=== PATIENT | male | born 1935 | race Two or more races ===

== ENCOUNTER 2018-04-17 10:11 | Inpatient (IN) | payer MEDICARE ==
--- NOTE | 2018-04-04 22:29 | HP ---
HISTORY AND PHYSICAL: DATE OF ADMISSION/SURGERY: 04/17/18 DATE OF OFFICE VISIT: 04/04/18 SURGEON: Marge Milton MD * (DICTATED BY KIERA GRANGER) PROCEDURE: Left total hip arthroplasty. CHIEF COMPLAINT: Left hip pain. HISTORY OF PRESENT ILLNESS: Mr. Gómez is an 82-year-old male with complaints of left hip pain. He has failed conservative treatment and elected to proceed with a left total hip arthroplasty. PAST MEDICAL HISTORY: 1. AFib. 2. Hypertension. 3. History of kidney cancer. 4. Thoracic aortic aneurysm. PAST SURGICAL HISTORY: Removal of his right kidney and bilateral total knee arthroplasties. CURRENT MEDICATIONS: 1. Coumadin. 2. Metoprolol 25 mg once a day. ALLERGIES: No known drug allergies. FAMILY HISTORY: Coronary artery disease and cancer. SOCIAL HISTORY: He is an 82-year-old gentleman, lives with his son. He does not smoke, use drugs or alcohol. REVIEW OF SYSTEMS: A complete 14-point review of systems is reviewed with the patient. It is positive for a history of kidney cancer, followed by a surgery to remove his right kidney. He denies a history of DVT, PE, hepatitis, HIV, or anesthesia problems. PHYSICAL EXAMINATION GENERAL: He is well developed, well nourished, in no acute distress. VITAL SIGNS: He stands 71 inches tall, weighs 225 pounds. Blood pressure 123/ 68, heart rate is 72. HEENT: Normocephalic, atraumatic. NECK: Supple. No palpable lymph nodes. PULMONARY: The lungs are clear to auscultation bilaterally. CARDIO: Regular rate and rhythm. Strong S1, S2. ABDOMEN: Soft, nontender, nondistended. NEUROLOGICAL: He is alert and oriented x3. MUSCULOSKELETAL: Left lower extremity: The skin is intact. There are no open wounds or abrasions. He walks with an antalgic-type gait favoring his left hip. Range of motion of the hip: He has 80 degrees of hip flexion, he lacks 10 degrees to neutral, and has no internal rotation. He has 20 degrees of external rotation. He has had 2+ dorsalis pedis pulse, intact sensation, and his lower extremity muscle group strengths are intact at 5/5. ASSESSMENT AND PLAN: Mr. Gómez is an 82-year-old gentleman with end-stage osteoarthritis of the left hip. He has failed conservative treatment and elected to proceed with a left total hip arthroplasty, which is scheduled for with Dr. Milton. Dr. Milton discussed the risks and benefits of the surgery at today's visit and all of his questions were answered. He will follow up with Dr. Milton 2 weeks after the surgery. KIERA GRANGER [id number]/[facility] #: [id number] [facility]
[~2018-04-17 10:11] MED LIST: Buffered Lidocaine 0.9% SYRIN* 5 ML/SYR SYRINGE INTRADERM ONE; Famotidine IV* 10 MG/ML 2 ML (20 mg) IV ONE; Gabapentin CAP(*) 300 MG PO ONE
--- OUTSIDE RECORDS SUMMARY | 2018-04-17 10:15 | XMS REPORT | Continuity of Care Document ---
:1935 External Reference #:[id number] Author Name Neville Parr Care Team Providers Name Role Phone Kelvin Gomez MD Primary Care Physician Unavailable Payers Type Date Identification Numbers Payment Provider Subscriber Effective: 2018 Policy Number: [id number] Medicare Spelios Stamas PayID: [id number] [address] [place] [address] Effective: 2018 PayID: [id number] [facility] Spelios Stamas [address] [place] [address] Effective: 2014 Policy Number: Todays Option/[place] pr Spelios Stamas [id number] Expires: 2018 PayID: [id number] [address] [address] Attn: [place] [address] Effective: 2013 Policy Number: [id number] Medicare Blue Ppo Spelios Stamas Expires: 2014 Group Number: [id number] [address] [address] PayID: [id number] ManasBRADLY lopes [id number] Advance Directives Description No Information Available Problems Date Description Provider Status Onset: 05/29/2013 Atrial fibrillation Yosvany Dobson M.D., Active JU KILPATRICK Onset: 06/17/2015 Dilatation of aorta Yosvany Dobson M.D., Active JU KILPATRICK Onset: 06/17/2015 Chronic atrial fibrillation Yosvany Dobson M.D., Active JU KILPATRICK Onset: 03/02/2018 Localized, primary osteoarthritis Marge Milton M.D. Active of the pelvic region and thigh Onset: 08/08/2017 Thoracic aortic ectasia Yosvany Dobson M.D., Active FINESSE, JU Family History Description No Information Available Social History Type Date Description Comments Sex Unknown Marital Status Single Lives With Alone Occupation Retired Tobacco Use Start: Unknown Never Smoked Cigarettes Smoking Status Reviewed: 04/04/18 Never Smoked Cigarettes ETOH Use Never used alcohol Tobacco Use Start: Unknown Patient has never smoked Recreational Drug Use Never Used Drugs Exercise Type/Frequency Exercises regularly walk 2-3 miles everyday Allergies, Adverse Reactions, Alerts Description No Known Drug Allergies Medications Medication Date Status Form Strength Qnty SIG Indications Ordering Provider Metoprolol 05/29/19 Active Tablets ER 25mg 90tabs 1 po qd Yosvany Mosqueda Succinate ER 14 24HR Michaela Dobson, JU KILPATRICK Coumadin Active Tablets 5mg 5mg and Unknown 00 7.5 mg the rest of the week Metoprolol Hx Tablets ER 25mg 1/2 tab Unknown Succinate ER 00 - 24HR po qd 05/29/19 14 Medications Administered in Office Medication Date Status Form Strength Qnty SIG Indications Ordering Provider Inj, Administered Injection Yosvany Mosqueda Regadenoson, 018 [place], 0.1 MG FINESSE Jennings FASNC Thallium Administered Injection Yosvany Dobson M.D., JU KILPATRICK Immunizations Description No Information Available Vital Signs Date Vital Result Comment 04/04/2018 11:44am Height 71 inches 5'11" Weight 225.00 lb Heart Rate 78 /min BP Systolic 123 mmHg BP Diastolic 68 mmHg Respiratory Rate 16 /min Pain Level 2 BMI (Body Mass Index) 31.4 kg/m2 03/26/2018 1:02pm Height 71 inches 5'11" Weight 225.00 lb Heart Rate 66 /min BP Systolic Sitting 126 mmHg lue lg cuff BP Diastolic Sitting 70 mmHg lue lg cuff BP Systolic Standing 120 mmHg BP Diastolic Standing 74 mmHg Respiratory Rate 16 /min BMI (Body Mass Index) 31.4 kg/m2 Ejection Fraction 60-65% 07/17/2017 echo 03/02/2018 10:07am Height 71 inches 5'11" Weight 220.00 lb BP Systolic 119 mmHg BP Diastolic 72 mmHg Respiratory Rate 17 /min Pain Level 4 BMI (Body Mass Index) 30.7 kg/m2 08/08/2017 1:04pm Height 71 inches 5'11" Weight 225.00 lb No shoes Heart Rate 70 /min BP Systolic Sitting 120 mmHg Lue lrg cuff BP Diastolic Sitting 64 mmHg Lue lrg cuff BP Systolic Standing 112 mmHg Lue lrg cuff BP Diastolic Standing 62 mmHg Lue lrg cuff Respiratory Rate 16 /min BMI (Body Mass Index) 31.4 kg/m2 Ejection Fraction 60-65% 07/17/2017-echo 06/15/2016 12:29pm Height 71 inches 5'11" Weight 234.00 lb no shoes Heart Rate 72 /min BP Systolic Sitting 124 mmHg Rue lrg cuff BP Diastolic Sitting 76 mmHg Rue lrg cuff BP Systolic Standing 122 mmHg Rue lrg cuff BP Diastolic Standing 76 mmHg Rue lrg cuff Respiratory Rate 16 /min BMI (Body Mass Index) 32.6 kg/m2 Ejection Fraction 60-65% 06/10/2016 echo 06/17/2015 10:46am Height 71 inches 5'11" Weight 229.00 lb without shoes Heart Rate 70 /min BP Systolic 138 mmHg LA lrg cuff BP Diastolic 76 mmHg LA lrg cuff BP Systolic Standing 126 mmHg LA lrg cuff BP Diastolic Standing 80 mmHg LA lrg cuff Respiratory Rate 16 /min BMI (Body Mass Index) 31.9 kg/m2 Ejection Fraction 55-60% 06/15/15 07/01/2014 1:22pm Height 71 inches 5'11" Weight 234.00 lb no shoes Heart Rate 56 /min BP Systolic Sitting 132 mmHg LA, large cuff BP Diastolic Sitting 74 mmHg LA, large cuff BP Systolic Standing 124 mmHg LA BP Diastolic Standing 80 mmHg LA Respiratory Rate 16 /min BMI (Body Mass Index) 32.6 kg/m2 07/01/2014 1:21pm Weight 234.00 lb 05/29/2013 11:24am Height 71 inches 5'11" Weight 227.00 lb Heart Rate 72 /min BP Systolic Sitting 114 mmHg LA reg cuff BP Diastolic Sitting 84 mmHg LA reg cuff BP Systolic Standing 110 mmHg LA BP Diastolic Standing 80 mmHg LA Respiratory Rate 18 /min BMI (Body Mass Index) 31.7 kg/m2 Results Test Date Facility Test Result H/L Range Note CBC Auto Diff 12/18/2017 [facility] White Blood 6.0 10^3/uL N 3.5-10.[address] [place] [address] [phone] Red Blood Count 4.93 10^6/uL N 4.00-5.40 Hemoglobin 15.4 g/dL N 14.0-18.0 Hematocrit 45 % N 42-52 Mean Corpuscular Volume 91 fL N 80-94 Mean Corpuscular Hemoglobin 31 pg N 27-31 Mean Corpuscular HGB Conc 34 g/dL N 31-36 Red Cell Distribution Width 14 % N 10.5-15 Platelet Count 148 10^3/uL Low 150-450 Mean Platelet Volume 9.1 um3 N 7.4-10.4 Abs Neutrophils 3.9 10^3/uL N 1.5-7.7 Abs Lymphocytes 1.5 10^3/uL N 1.0-4.8 Abs Monocytes 0.4 10^3/uL N 0-0.8 Abs Eosinophils 0.1 10^3/uL N 0-0.6 Abs Basophils 0 10^3/uL N 0-0.2 Abs Nucleated RBC 0 10^3/uL Granulocyte % 65.2 % N 38-83 Lymphocyte % 25.3 % N 25-47 Monocyte % 6.5 % N 0-7 Eosinophil % 2.3 % N 0-6 Basophil % 0.7 % N 0-2 Nucleated Red Blood Cells % 0.1 Comp Metabolic Panel 12/18/2017 [facility] Albumin 4.1 g/dL N 3.2-5.[address] [place], [place] [id number] [phone] Sodium 141 mmol/L N 135-145 Potassium 4.4 mmol/L N 3.5-5.0 Chloride 107 mmol/L N 101-111 Co2 Carbon Dioxide 26 mmol/L N 22-32 Anion Gap 8 mmol/L N 2-11 Glucose 89 mg/dL N 70-100 Blood Urea Nitrogen 29 mg/dL High 6-24 Creatinine 1.73 mg/dL High 0.67-1.17 BUN/Creatinine Ratio 16.8 N 8-20 Calcium 8.5 mg/dL Low 8.6-10.3 Total Bilirubin 0.90 mg/dL N 0.2-1.0 Alkaline Phosphatase 59 U/L N 34-104 Alt 11 U/L N 7-52 Ast 16 U/L N 13-39 Egfr Non- 37.9 >60 Egfr 45.9 >60 1 Total Protein 6.5 g/dL N 6.4-8.9 Globulin 2.4 g/dL N 2-4 Albumin/Globulin Ratio 1.7 N 1-3 Comp Metabolic Panel 06/16/2015 [facility] Sodium 136 mmol/L N 133-[address] [place] [address] [phone] Potassium 4.9 mmol/L N 3.5-5.0 Chloride 103 mmol/L N 101-111 Co2 Carbon Dioxide 28 mmol/L N 22-32 Anion Gap 5 mmol/L N 2-11 Glucose 72 mg/dL N 70-100 Blood Urea Nitrogen 24 mg/dL N 6-24 Creatinine 1.94 mg/dL High 0.67-1.17 BUN/Creatinine Ratio 12.4 N 8-20 Calcium 8.5 mg/dL Low 8.6-10.3 Total Protein 6.9 g/dL N 6.4-8.9 Albumin 4.3 g/dL N 3.2-5.2 Globulin 2.6 g/dL N 2-4 Albumin/Globulin Ratio 1.7 N 1-3 Total Bilirubin 0.80 mg/dL N 0.2-1.0 Alkaline Phosphatase 56 U/L N 34-104 Alt 12 U/L N 7-52 Ast 17 U/L N 13-39 Egfr Non- 33.5 N >60 Egfr 43.0 N >60 2 CBC Auto Diff 06/16/2015 [facility] White Blood 6.4 10^3/uL N 3.5-10.[address] [place] [address] [phone] Red Blood Count 4.76 10^6/uL N 4.0-5.4 Hemoglobin 14.7 g/dL N 14.0-18.0 Hematocrit 45 % N 42-52 Mean Corpuscular Volume 94 fL N 80-94 Mean Corpuscular Hemoglobin 31 pg N 27-31 Mean Corpuscular HGB Conc 33 g/dL N 31-36 Red Cell Distribution Width 14 % N 10.5-15 Platelet Count 149 10^3/uL Low 150-450 Mean Platelet Volume 9 um3 N 7.4-10.4 Abs Neutrophils 4.2 10^3/uL N 1.5-7.7 Abs Lymphocytes 1.5 10^3/uL N 1.0-4.8 Abs Monocytes 0.5 10^3/uL N 0-0.8 Abs Eosinophils 0.1 10^3/uL N 0-0.6 Abs Basophils 0.1 10^3/uL N 0-0.2 Abs Nucleated RBC 0.01 10^3/uL N Granulocyte % 66.1 % N 38-83 Lymphocyte % 23.7 % Low 25-47 Monocyte % 7.1 % N 1-9 Eosinophil % 2.2 % N 0-6 Basophil % 0.9 % N 0-2 Nucleated Red Blood Cells % 0.1 N Lipid Profile 06/02/2014 [facility] Triglycerides 107 mg/dL N 3, 4 (Trig/Chol/HDL) [address] [place] [address] [phone] Cholesterol 160 mg/dL N 5 HDL Cholesterol 35.3 mg/dL N 6 LDL Cholesterol 103 mg/dL N 7 Comp Metabolic Panel 06/02/2014 [facility] Sodium 137 mmol/L N 133-145 [address] [place] [address] [phone] Potassium 4.4 mmol/L N 3.5-5.0 Chloride 102 mmol/L N 101-111 Co2 Carbon Dioxide 28 mmol/L N 22-32 Anion Gap 7 mmol/L N 2-11 Glucose 83 mg/dL N 70-100 Blood Urea Nitrogen 24 mg/dL N 6-24 Creatinine 1.64 mg/dL High 0.67-1.17 BUN/Creatinine Ratio 14.6 N 8-20 Calcium 8.5 mg/dL Low 8.6-10.3 Total Protein 6.6 g/dL N 6.4-8.9 Albumin 4.1 g/dL N 3.2-5.2 Globulin 2.5 g/dL N 2-4 Albumin/Globulin Ratio 1.6 N 1-3 Total Bilirubin 1.00 mg/dL N 0.2-1.0 Alkaline Phosphatase 49 U/L N 34-104 Alt 16 U/L N 7-52 Ast 20 U/L N 13-39 Egfr Non- 40.7 N >60 Egfr 52.4 N >60 8 CBC Auto Diff 06/02/2014 [facility] White Blood 6.4 10^3/uL N 4.8-10.[address] [place] [address] [phone] Red Blood Count 5.01 10^6/uL N 4.0-5.4 Hemoglobin 15.8 g/dL N 14.0-18.0 Hematocrit 47 % N 42-52 Mean Corpuscular Volume 93 fL N 80-94 Mean Corpuscular Hemoglobin 32 pg High 27-31 Mean Corpuscular HGB Conc 34 g/dL N 31-36 Red Cell Distribution Width 14 % N 10.5-15 Platelet Count 152 10^3/uL N 150-450 Mean Platelet Volume 9 um3 N 7.4-10.4 Abs Neutrophils 3.9 10^3/uL N 1.5-7.7 Abs Lymphocytes 1.9 10^3/uL N 1.0-4.8 Abs Monocytes 0.5 10^3/uL N 0-0.8 Abs Eosinophils 0.1 10^3/uL N 0-0.6 Abs Basophils 0 10^3/uL N 0-0.2 Abs Nucleated RBC 0.04 10^3/uL N Granulocyte % 60.7 % N 38-83 Lymphocyte % 29.6 % N 25-47 Monocyte % 7.3 % N 1-9 Eosinophil % 1.8 % N 0-6 Basophil % 0.6 % N 0-2 Nucleated Red Blood Cells % 0.6 N Comp Metabolic Panel 11/15/2013 [facility] Sodium 138 mmol/L N 133-[address] [place] [address] [phone] Potassium 4.3 mmol/L N 3.7-5.6 Chloride 103 mmol/L N 101-111 Co2 Carbon Dioxide 30 mmol/L N 22-32 Anion Gap 5 mmol/L N 2-11 Glucose 82 mg/dL N 70-100 Blood Urea Nitrogen 19 mg/dL N 6-24 Creatinine 1.66 mg/dL High 0.67-1.17 BUN/Creatinine Ratio 11.4 N 8-20 Calcium 8.4 mg/dL Low 8.6-10.3 Total Protein 6.3 g/dL Low 6.4-8.9 Albumin 4.2 g/dL N 3.2-5.2 Globulin 2.1 g/dL N 2-4 Albumin/Globulin Ratio 2.0 N 1-3 Total Bilirubin 1.00 mg/dL N 0.2-1.0 Alkaline Phosphatase 52 U/L N 34-104 Alt 16 U/L N 7-52 Ast 20 U/L N 13-39 Egfr Non- 40.2 N >60 Egfr 51.7 N >60 9 CBC Auto Diff 11/15/2013 [facility] White Blood 5.8 10^3/uL N 4.8-10.[address] [place] [address] [phone] Red Blood Count 4.65 10^6/uL N 4.0-5.4 Hemoglobin 14.9 g/dL N 14.0-18.0 Hematocrit 43 % N 42-52 Mean Corpuscular Volume 93 fL N 80-94 Mean Corpuscular Hemoglobin 32 pg High 27-31 Mean Corpuscular HGB Conc 35 g/dL N 31-36 Red Cell Distribution Width 14 % N 10.5-15 Platelet Count 160 10^3/uL N 150-450 Mean Platelet Volume 8 um3 N 7.4-10.4 Abs Neutrophils 3.6 10^3/uL N 1.5-7.7 Abs Lymphocytes 1.5 10^3/uL N 1.0-4.8 Abs Monocytes 0.4 10^3/uL N 0-0.8 Abs Eosinophils 0.1 10^3/uL N 0-0.6 Abs Basophils 0.1 10^3/uL N 0-0.2 Abs Nucleated RBC 0.01 10^3/uL N Granulocyte % 63.0 % N 38-83 Lymphocyte % 26.0 % N 25-47 Monocyte % 7.5 % N 1-9 Eosinophil % 2.5 % N 0-6 Basophil % 1.0 % N 0-2 Nucleated Red Blood Cells % 0.1 N Comp Metabolic Panel 05/20/2013 [facility] Sodium 138 mmol/L 133-[address] [place] [address] [phone] Potassium 4.5 mmol/L 3.5-5.0 Chloride 101 mmol/L 101-111 Co2 Carbon Dioxide 32.0 mmol/L 22-32 Anion Gap 5.0 mmol/L 2-11 Glucose 99 mg/dL 70-100 Blood Urea Nitrogen 27 mg/dL High 6-24 Creatinine 1.50 mg/dL High 0.50-1.40 BUN/Creatinine Ratio 18.0 8-20 Calcium 8.7 mg/dL 8.1-9.9 Total Protein 6.9 g/dL 6.2-8.1 Albumin 4.1 g/dL 3.2-5.2 Globulin 2.8 g/dL 2-4 Albumin/Globulin Ratio 1.5 1-3 Total Bilirubin 1.4 mg/dL 0.4-1.5 Alkaline Phosphatase 55 U/L 30-110 Alt 21 U/L 14-54 Ast 26 U/L 12-42 Egfr Non- 45.3 >60 Egfr 58.2 >60 10 CBC Auto Diff 05/20/2013 [facility] White Blood 6.9 10^3/uL 4.8-10.[address] [place] [address] [phone] Red Blood Count 5.02 10^6/uL 4.0-5.4 Hemoglobin 15.6 g/dL 14.0-18.0 Hematocrit 46 % 42-52 Mean Corpuscular Volume 91 fL 80-94 Mean Corpuscular Hemoglobin 31 pg 27-31 Mean Corpuscular HGB Conc 34 g/dL 31-36 Red Cell Distribution Width 14 % 10.5-15 Platelet Count 164 10^3/uL 150-450 Mean Platelet Volume 9 um3 7.4-10.4 Abs Neutrophils 4.4 10^3/uL 1.5-7.7 Abs Lymphocytes 1.8 10^3/uL 1.0-4.8 Abs Monocytes 0.5 10^3/uL 0-0.8 Abs Eosinophils 0.1 10^3/uL 0-0.6 Abs Basophils 0 10^3/uL 0-0.2 Abs Nucleated RBC 0.01 10^3/uL Granulocyte % 64.4 % 38-83 Lymphocyte % 26.4 % 25-47 Monocyte % 7.0 % 1-9 Eosinophil % 1.5 % 0-6 Basophil % 0.7 % 0-2 Nucleated Red Blood Cells % 0.2 1 Because ethnic data is not always readily available, this report includes an eGFR for both -Americans and non- Americans. The National Kidney Disease Education Program (NKDEP) does not endorse the use of the MDRD equation for patients that are not between the ages of 18 and 70, are , have extremes of body size, muscle mass, or nutritional status, or are non- or non-. According to the National Kidney Foundation, irrespective of diagnosis, the stage of the disease is based on the level of kidney function: Stage Description GFR(mL/min/1.73 m(2)) 1 Kidney damage with normal or decreased GFR 90 2 Kidney damage with mild decrease in GFR 60-89 3 Moderate decrease in GFR 30-59 4 Severe decrease in GFR 15-29 5 Kidney failure <15 (or dialysis) 2 Because ethnic data is not always readily available, this report includes an eGFR for both -Americans and non- Americans. The National Kidney Disease Education Program (NKDEP) does not endorse the use of the MDRD equation for patients that are not between the ages of 18 and 70, are , have extremes of body size, muscle mass, or nutritional status, or are non- or non-. According to the National Kidney Foundation, irrespective of diagnosis, the stage of the disease is based on the level of kidney function: Stage Description GFR(mL/min/1.73 m(2)) 1 Kidney damage with normal or decreased GFR 90 2 Kidney damage with mild decrease in GFR 60-89 3 Moderate decrease in GFR 30-59 4 Severe decrease in GFR 15-29 5 Kidney failure <15 (or dialysis) 3 FASTING 4 Desirable <150 Borderline high 150-199 High 200-499 Very High >500 5 Desirable <200 Borderline high 200-239 High >239 6 Low <40 Desirable: 40-60 High: >60 7 Desirable <100 Near Optimal 100-129 Borderline high 130-159 High 160-189 Very High >189 8 Because ethnic data is not always readily available, this report includes an eGFR for both -Americans and non- Americans. The National Kidney Disease Education Program (NKDEP) does not endorse the use of the MDRD equation for patients that are not between the ages of 18 and 70, are , have extremes of body size, muscle mass, or nutritional status, or are non- or non-. According to the National Kidney Foundation, irrespective of diagnosis, the stage of the disease is based on the level of kidney function: Stage Description GFR(mL/min/1.73 m(2)) 1 Kidney damage with normal or decreased GFR 90 2 Kidney damage with mild decrease in GFR 60-89 3 Moderate decrease in GFR 30-59 4 Severe decrease in GFR 15-29 5 Kidney failure <15 (or dialysis) 9 Because ethnic data is not always readily available, this report includes an eGFR for both -Americans and non- Americans. The National Kidney Disease Education Program (NKDEP) does not endorse the use of the MDRD equation for patients that are not between the ages of 18 and 70, are , have extremes of body size, muscle mass, or nutritional status, or are non- or non-. According to the National Kidney Foundation, irrespective of diagnosis, the stage of the disease is based on the level of kidney function: Stage Description GFR(mL/min/1.73 m(2)) 1 Kidney damage with normal or decreased GFR 90 2 Kidney damage with mild decrease in GFR 60-89 3 Moderate decrease in GFR 30-59 4 Severe decrease in GFR 15-29 5 Kidney failure <15 (or dialysis) 10 Because ethnic data is not always readily available, this report includes an eGFR for both -Americans and non- Americans. The National Kidney Disease Education Program (NKDEP) does not endorse the use of the MDRD equation for patients that are not between the ages of 18 and 70, are , have extremes of body size, muscle mass, or nutritional status, or are non- or non-. According to the National Kidney Foundation, irrespective of diagnosis, the stage of the disease is based on the level of kidney function: Stage Description GFR(mL/min/1.73 m(2)) 1 Kidney damage with normal or decreased GFR 90 2 Kidney damage with mild decrease in GFR 60-89 3 Moderate decrease in GFR 30-59 4 Severe decrease in GFR 15-29 5 Kidney failure <15 (or dialysis) Procedures Date Code Description Status 03/26/2018 76224 EKG Tracing & Interpretation Completed 03/12/2018 81217 Stress Test Completed 03/12/2018 27458 Myocardial Perfusion Imaging Tomographic (Spect) Multiple Completed Studies 08/08/2017 63111 EKG Tracing & Interpretation Completed 07/17/2017 85743 ECHO Transthoracic, Real-Time 2D With Doppler And Color Completed Flow 07/17/2017 68395 ECHO Transthoracic, Real-Time 2D With Doppler And Color Completed Flow 06/15/2016 66797 EKG Tracing & Interpretation Completed 06/10/2016 10811 ECHO Transthoracic, Real-Time 2D With Doppler And Color Completed Flow 06/17/2015 31627 EKG Tracing & Interpretation Completed 06/15/2015 29012 ECHO Transthoracic, Real-Time 2D With Doppler And Color Completed Flow 07/01/2014 05311 EKG Tracing & Interpretation Completed 05/26/2014 72927 ECHO Transthoracic, Real-Time 2D With Doppler And Color Completed Flow 05/29/2013 34122 EKG Tracing & Interpretation Completed 05/24/2013 10409 ECHO Transthoracic, Real-Time 2D With Doppler And Color Completed Flow 05/25/2012 91444 EKG Tracing & Interpretation Completed 05/21/2012 02622 ECHO Transthoracic, Real-Time 2D With Doppler And Color Completed Flow Encounters Type Date Location Provider Dx Diagnosis Office Visit 03/26/2018 [facility] Yosvany Mosqueda I77.810 Thoracic aortic 1:15p Of Shayne Dobson M.D., ectasia [facility] Office Visit 03/02/2018 [facility], M25.552 Pain in left hip 9:45a [facility] M25.551 Pain in right hip M16.0 Bilateral primary osteoarthritis of hip Office Visit 08/08/2017 1:45p [facility] Yosvany Mosqueda I77.810 Thoracic aortic Of Shayne Dobson M.D., ectasia [facility] I48.2 Chronic atrial fibrillation Office Visit 06/15/2016 1:00p [facility] Yosvany Mosqueda I48.2 Chronic atrial Of Shayne Dobson M.D., fibrillation FAC, [facility] Office Visit 06/17/2015 11:00a [facility] Yosvany Mosqueda I77.819 Aortic ectasia, Of Shayne Dobson M.D., unspecified site [facility]AC, [facility] I48.2 Chronic atrial fibrillation Office Visit 07/01/2014 1:45p [facility] Yosvany Mosqueda 427.31 Atrial Of Shayne Dobson M.D., Fibrillation FAC, FASAK Office Visit 05/29/2013 10:45a [facility] Yosvany Mosqueda 427.31 Atrial Of Shayne Dobson M.D., Fibrillation FACC, FASNC Office Visit 05/25/2012 10:30a [facility] Yosvany Mosqueda 427.31 Atrial Of Shayne Dobson M.D., Fibrillation FACC, FASNC Plan of Treatment Future Appointment(s):04/17/2018 1:30 pm - Santana Barron PA-C at [facility].04/17/2018 1:30 pm - KIERA Talley at [facility].04/17/2018 1:30 pm - Marge Milton M.D. at [facility].04/04/2018 - Marge Milton M.D.M25.552 Pain in left hipFollow up:Follow up: 2 weeks after [id number] Bilateral primary osteoarthritis of hip
--- OUTSIDE RECORDS SUMMARY | 2018-04-17 10:16 | XMS REPORT | Continuity of Care Document ---
:1935 External Reference #:[id number] Author Name Suze Arroyo Care Team Providers Name Role Phone Kelvin Gomez MD Primary Care Physician Unavailable Payers Type Date Identification Numbers Payment Provider Subscriber Effective: 2018 Policy Number: [id number] Medicare Spel[employer] Stamas PayID: [id number] [address] [place] [address] Effective: 2018 PayID: [id number] [facility] Spelios Stamas [address] [place] [address] Effective: 2014 Policy Number: Todays Option/Welsh pr Spelios Stamas [id number] Expires: 2018 PayID: [id number] [address] [address] Attn: [place] [address] Effective: 2013 Policy Number: [id number] Medicare Blue Ppo Spelios Stamas Expires: 2014 Group Number: [id number] [address] [address] PayID: [id number] [place] [address] Advance Directives Description No Information Available Problems [...] Thoracic aortic ectasia Yosvany Dobson M.D., Active JU KILPATRICK Family History Description No Information Available Social History Type Date Description Comments Sex Unknown Marital Status Single Lives With Alone Occupation Retired Tobacco Use Start: Unknown Never Smoked Cigarettes Smoking Status Reviewed: 03/26/18 Never Smoked Cigarettes ETOH Use Never used [...] Yosvany Mosqueda Regadenoson, 018 [place], 0.1 MG Michaela, JU KILPATRICK Thallium Administered Injection Yosvany Dobson M.D., JU KILPATRICK Immunizations Description No Information Available Vital Signs Date Vital Result Comment 03/26/2018 1:02pm Height 71 inches 5'11" Weight [...] H/L Range Note CBC Auto Diff 12/18/2017 [facility] White Blood 6.0 10^3/uL N 3.5-10.[address] [place] [address] [phone] Red Blood Count 4.93 10^6/uL N 4.00-5.40 [...] Cells % 0.1 Comp Metabolic Panel 12/18/2017 [facility] Albumin 4.1 g/dL N 3.2-5.2 [address] [place] [address] [phone] Sodium 141 mmol/L N 135-145 Potassium 4.4 [...] 1.7 N 1-3 Comp Metabolic Panel 06/16/2015 [facility] Sodium 136 mmol/L N 133-[address] [place] [address] [phone] Potassium 4.9 mmol/L N 3.5-5.0 Chloride 103 [...] N >60 2 CBC Auto Diff 06/16/2015 [facility] White Blood 6.4 10^3/uL N 3.5-10.[address] [place] [address] [phone] Red Blood Count 4.76 10^6/uL N 4.0-5.4 [...] Cells % 0.1 N Comp Metabolic Panel 06/02/2014 [facility] Sodium 137 mmol/L N 133-[address] [place] [address] [phone] Potassium 4.4 mmol/L N 3.5-5.0 Chloride 102 [...] 40.7 N >60 Egfr 52.4 N >60 3 CBC Auto Diff 06/02/2014 [facility] White Blood 6.4 10^3/uL N 4.8-10.[address] [place] [address] [phone] Red Blood Count 5.01 10^6/uL N 4.0-5.4 [...] Nucleated Red Blood Cells % 0.6 N Lipid Profile 06/02/2014 [facility] Triglycerides 107 mg/dL N 4, 5 (Trig/Chol/HDL) [address] [place] [address] [phone] Cholesterol 160 mg/dL N 6 HDL Cholesterol 35.3 mg/dL N 7 LDL Cholesterol 103 mg/dL N 8 Comp Metabolic Panel 11/15/2013 [facility] Sodium 138 mmol/L N 133-145 [address] [place] [address] [phone] Potassium 4.3 mmol/L N 3.7-5.6 Chloride 103 [...] N >60 9 CBC Auto Diff 11/15/2013 [facility] White Blood 5.8 10^3/uL N 4.8-10.[address] [place] [address] [phone] Red Blood Count 4.65 10^6/uL N 4.0-5.4 [...] % 0.1 N Comp Metabolic Panel 05/20/2013 [facility] Sodium 138 mmol/L 133-[address] [place] [address] [phone] Potassium 4.5 mmol/L 3.5-5.0 Chloride 101 mmol/L [...] 58.2 >60 10 CBC Auto Diff 05/20/2013 [facility] White Blood 6.9 10^3/uL 4.8-10.[address] [place] [address] [phone] Red Blood Count 5.02 10^6/uL 4.0-5.4 Hemoglobin [...] 5 Kidney failure <15 (or dialysis) 3 Because ethnic data is not always readily [...] 15-29 5 Kidney failure <15 (or dialysis) 4 FASTING 5 Desirable <150 Borderline high 150-199 High 200-499 Very High >500 6 Desirable <200 Borderline high 200-239 High >239 7 Low <40 Desirable: 40-60 High: >60 8 Desirable <100 Near Optimal 100-129 Borderline high 130-159 High 160-189 Very High >189 9 Because ethnic data is not always [...] dialysis) Procedures Date Code Description Status 03/26/2018 38808 EKG Tracing & Interpretation Completed 03/12/2018 81636 Stress Test Completed 03/12/2018 61428 Myocardial Perfusion Imaging Tomographic (Spect) Multiple Completed Studies 08/08/2017 24739 EKG Tracing & Interpretation Completed 07/17/2017 47771 ECHO Transthoracic, Real-Time 2D With Doppler And Color Completed Flow 07/17/2017 42562 ECHO Transthoracic, Real-Time 2D With Doppler And Color Completed Flow 06/15/2016 18504 EKG Tracing & Interpretation Completed 06/10/2016 92154 ECHO Transthoracic, Real-Time 2D With Doppler And Color Completed Flow 06/17/2015 93794 EKG Tracing & Interpretation Completed 06/15/2015 78975 ECHO Transthoracic, Real-Time 2D With Doppler And Color Completed Flow 07/01/2014 59447 EKG Tracing & Interpretation Completed 05/26/2014 97762 ECHO Transthoracic, Real-Time 2D With Doppler And Color Completed Flow 05/29/2013 43202 EKG Tracing & Interpretation Completed 05/24/2013 74981 ECHO Transthoracic, Real-Time 2D With Doppler And Color Completed Flow 05/25/2012 10130 EKG Tracing & Interpretation Completed 05/21/2012 90674 ECHO Transthoracic, Real-Time 2D With Doppler And Color Completed Flow Encounters Type Date Location Provider Dx Diagnosis Office Visit 03/02/2018 [facility] Milton, M25.552 Pain in left hip 9:[facility] M25.551 Pain in right hip M16.0 Bilateral primary osteoarthritis of hip Office Visit 08/08/2017 1:45p [facility] Yosvany Mosqueda I77.810 Thoracic aortic Of Shayne Dobson M.D., ectasia FACC, FASNC I48.2 Chronic atrial fibrillation Office Visit 06/15/2016 1:00p [facility] Yosvany Mosqueda I48.2 Chronic atrial Of Shayne Dobson M.D., fibrillation FACC, FASNC Office Visit 06/17/2015 11:00a [facility] Yosvany Mosqueda I77.819 Aortic ectasia, Of Shayne Dobson M.D., unspecified site FACC, FASNC I48.2 Chronic atrial fibrillation Office Visit 07/01/2014 1:45p [facility] Mosqueda 427.31 Atrial Of Shayne Dobson M.D., Fibrillation FACC, FASNC Office Visit 05/29/2013 10:45a [facility] Yosvany Mosqueda 427.31 Atrial Of Shayne Dobson M.D., Fibrillation FACC, FASNC Office Visit 05/25/2012 10:30a [facility] Yosvany Mosqueda 427.31 Atrial Of Shayne Dobson M.D., Fibrillation FACC, FASNC Plan of Treatment Future Appointment(s):04/17/2018 3:30 pm - Marge Milton M.D. at [facility]04/04/2018 11:15 am - Marge Milton M.D. at [facility]03/26/2018 - Yosvany Dobson M.D., FACC, [id number] Thoracic aortic ectasiaNew Orders:Echocardiogram, Ordered: 03/26/18Comments:As discussed, I feel you may have needed hip replacement surgery with Dr. Milton. Please continue to walk for exercise and avoid lifting weights greater than 30 lbs.Follow up:one year after echo
[2018-04-17] MEDS ORDERED: ceFAZolin 2 GM PREMIX in ORs 2 GM/50 ML BAG IVPB ONE (10:34)
[2018-04-17] MEDS ORDERED: Famotidine IV* 10 MG/ML 2 ML (20 mg) ONE (10:34)
[2018-04-17] MEDS ORDERED: Gabapentin CAP(*) 300 MG ONE (10:34)
[2018-04-17 11:42] LABS: INR 1.15 (0.77-1.02)
[2018-04-17] MEDS ORDERED: fentaNYL* 50 MCG/ML 2 ML VIAL (100 MCG VIAL) ONE (12:03)
[2018-04-17] MEDS ORDERED: Midazolam* 1 MG/ML 5 ML VIAL (5 MG) ONE (12:03)
[2018-04-17] MEDS ORDERED: Lidocaine 1%* 5 ML VIAL ONE (12:40)
[2018-04-17] MEDS ORDERED: ROPIVACAINE 5 MG/ML 30 ML BTL (0.5%) ONE (12:40)
[2018-04-17] MEDS ORDERED: KETAMINE HCL* 50 MG/ML 10 ML VIAL ONE (13:39)
[2018-04-17] MEDS ORDERED: Lidocaine 2% PF * 5 ML VIAL ONE (14:43)
[2018-04-17] MEDS ORDERED: EPHEDrine (Pressors)* 50 MG/ML VIAL ONE (14:43)
[2018-04-17] MEDS ORDERED: Dexamethasone IV* 4 MG/ML 1 ML (4 MG) ONE (14:43)
[2018-04-17] MEDS ORDERED: Ondansetron INJ* 2 MG/ML VIAL ONE (14:43)
[2018-04-17] MEDS ORDERED: Propofol* 10 MG/ML 20 ML BTL ONE (14:43)
[2018-04-17] MEDS ORDERED: HYDROmorphone INJ1* 1 MG/ML SYRINGE ONE (15:31)
[2018-04-17] MEDS ORDERED: HYDROmorphone INJ1* 1 MG/ML SYRINGE IV PRN (16:12)
[2018-04-17] MEDS ORDERED: Acetaminophen IV 1GM/100ML * 1,000 MG/100 ML VIAL IVPB ONE (16:12)
[2018-04-17] MEDS ORDERED: Bupivacaine 0.5% PF 10 ML VIAL INJ ONE (16:12)
[2018-04-17] MEDS ORDERED: Naloxone* 0.4 MG/ML 1 ML VIAL IV PRN (16:12)
[2018-04-17] MEDS ORDERED: DiMENhydriNATE IV* 50 MG/ML VIAL IV PUSH PRN (16:12)
[2018-04-17] MEDS ORDERED: Gabapentin CAP(*) 100 MG PO ONE (16:13)
[2018-04-17] MEDS ORDERED: Bisacodyl SUPP* 10 MG SUPP PR PRN (16:34)
[2018-04-17] MEDS ORDERED: oxyCODONE/Acetamin 5/325 MG* TAB PO PRN (16:34)
[2018-04-17] MEDS ORDERED: Magnesium Hydroxide LIQ* 30 ML UDC PO PRN (16:34)
[2018-04-17] MEDS ORDERED: Cyclobenzaprine TAB* 10 MG PO PRN (16:34)
[2018-04-17] MEDS ORDERED: oxyCODONE TAB* 5 MG TAB PO PRN (16:34)
[2018-04-17] MEDS ORDERED: diPHENhydraMINE IV* 50 MG/ML 1 ml VIAL (BENADRYL) IV PRN (16:34)
[2018-04-17] MEDS ORDERED: Morphine VIAL* 4 MG/ML VIAL (1 ml vial) IV PRN (16:34)
[2018-04-17] MEDS ORDERED: Warfarin TAB(*) 6 MG PO ONE (17:00)
[2018-04-17] MEDS: Docusate CAP* 100 MG PO SCH (19:31)
[2018-04-17] MEDS: Magnesium Hydroxide LIQ* 30 ML UDC PO SCH (19:32)
[2018-04-17] MEDS: Nystatin TOP POWDER* 15 GM BTL TOPICAL SCH (21:51)
[2018-04-17] MEDS: ceFAZolin 1 GM ADVAN(*) 1 GM in NS 0.9% 50 ML* 50 ML IVPB SCH (21:52)
[2018-04-17] MEDS: Acetaminophen TAB* 325 MG PO PRN (23:34)
--- NOTE | 2018-04-18 01:43 | CONS ---
HOSPITAL MEDICINE CONSULTATION REPORT: DATE OF ADMISSION: 04/17/18 DATE OF CONSULT: 04/17/18 PROVIDER: Edwina Silva NP ATTENDING PHYSICIAN: Dr. Milton. CONSULTING PHYSICIAN: Dr. Patricio Mathis (dictated by Edwina Silva NP). REASON FOR CONSULT: Comanagement of chronic medical conditions. HISTORY OF PRESENT ILLNESS: Mr. Gómez is a 82-year-old gentleman with a past medical history significant for atrial fibrillation, hypertension, history of kidney cancer, thoracic aortic ectasia, who presented to [facility] for an elective left total hip arthroplasty with Dr. Milton. Please see dictated H and P from KIERA Singer for complete details. In brief, the patient had ongoing pain and failed conservative measures. Therefore, opted for an elective left total hip arthroplasty with Dr. Milton. In the immediate postoperative period, the patient has no complaints. He is resting in his bed in his room on short-stay surgical. He denies any recent fever or chills. Denies any nausea, vomiting or diarrhea. Denies any cough, congestion or shortness of breath. Denies any hemoptysis. Denies any gross hematuria, dysuria. Denies any focal weakness or sensory loss. Denies any visual complaints, dysphagia or increased arthralgias or myalgias, rashes, lesions, depression or anxiety. Given his history of atrial fibrillation and hypertension, we were asked to consult to help manage his chronic medical conditions. PAST MEDICAL HISTORY: 1. Atrial fibrillation, paroxysmal. 2. Hypertension. 3. History of kidney cancer. 4. Thoracic aortic ectasia. PAST SURGICAL HISTORY: Right kidney removed, bilateral knee arthroplasties. HOME MEDICATIONS: 1. Coumadin. 2. Metoprolol 25 once daily. ALLERGIES: No known drug allergies. FAMILY HISTORY: The patient's father with a history of congestive heart failure. No reported history of diabetes. Mother with a history of ovarian cancer. SOCIAL HISTORY: Denies any tobacco, alcohol or illicit drug use. He is retired. He lives with his son. Surrogate decision maker in the event he is unable to make his own decisions is his son, Manuel Gómez. His phone number is [phone]. He is a full code. REVIEW OF SYSTEMS: A complete 14-point review of systems was reviewed with the patient. All positives were noted as above. He denies any fever or chills. Denies any unintended weight loss. Denies any chest pain or edema. Denies any cough, congestion or hemoptysis. He denies any shortness of breath. GI: Denies any nausea, vomiting or diarrhea. : Denies any gross hematuria or dysuria. Denies any focal weakness or sensory loss. ENT: Denies any dysphagia. Musculoskeletal: No arthralgias or myalgias. Skin: No rashes, lesions or open sores. Psych: Denies any depression or anxiety. PHYSICAL EXAMINATION: Vital Signs: Blood pressure 128/68, heart rate 79, respirations 18, O2 saturation 100% on room air, temperature was 97.9. General : Mr. Gómez is sitting in his bed in his room. He is in no acute distress. Neurologic: He is awake, alert, and oriented x3. He is able to move all 4 extremities. He does have limited range of motion to left lower extremity. Pedal pulses are +2 bilaterally. Dressing is intact to his left hip. There is no drainage noted. Cardiac: S1, S2. Regular rate and rhythm. Lungs are clear to auscultation bilaterally. No wheezes, rales or rhonchi. Abdomen is soft and nontender. Bowel sounds are present x4. Extremities: There is no cyanosis or edema. Skin: Dressing is intact to his left hip, dry without any drainage noted. DIAGNOSTIC STUDIES/LAB DATA: WBCs on 04/04/18, were 6.9, RBCs 4.76, hemoglobin 15.1, hematocrit was 45, platelet count was 157. INR was 1.15. APTT was 43.3. Sodium 137, potassium 4.8, chloride 107, carbon dioxide was 27, anion gap was 3 , BUN was 29, creatinine 1.74, glucose was 81, calcium 8.6. ASTs were 20. ALTs were 13. Urine on 04/04/18, was yellow, clear; pH was 5.0; specific gravity 1.018; urine protein, ketones were negative, urine blood was 1+, urine nitrites, bilirubin, urobilinogen, urine leukocyte esterase were negative. Urine wbc's were trace. Urine rbc's were 1_. Urine squamous epithelial cells were present. Urine bacteria was absent. Urine glucose was negative. Postoperative hip x-ray, status post left total hip replacement surgery. IMPRESSION: Mr. Gómez is an 82-year-old gentleman, who presented to [facility] for an elective left total hip arthroplasty with Dr. Milton. In the immediate postoperative period, he has no complaints. His pain is currently being controlled with pain medications as needed. Our recommendations are as follows: 1. Status post left total hip arthroplasty, management per Orthopedics. PT/TO per Orthopedics. DVT prophylaxis per Orthopedics. Bowel regimen per Orthopedics. 2. Atrial fibrillation. I would recommend resuming his Coumadin when able. We will continue on metoprolol. I would monitor him on telemetry. 3. History of hypertension. I will continue his metoprolol 25 mg p.o. daily with holding parameters for systolic blood pressure less than 110. 4. History of kidney cancer, not a current issue. Continue to monitor renal function. I would recommend repeating a BMP tomorrow. 5. DVT prophylaxis as per Orthopedics. 6. Code status. He is a full code. 7. Diet. I would recommend a heart-healthy, caffeine-okay diet. TIME SPENT: Time spent on this consultation was 45 minutes, more than half of that time was spent with the patient at the bedside reviewing events leading thus far to this hospitalization, performing physical exam, and reviewing my plan of care. I have discussed this with my attending, Dr. Nils Mathis; she is in agreement with my plan. EDWINA SILVA, JUDY [id number]/[facility] #: [id number] JAZMINE
[2018-04-18 05:31] LABS: Hematocrit 39 % (42-52); Hemoglobin 13.2 g/dl (14.0-18.0); Platelet Count 148 10^3/ul (150-450)
[2018-04-18 05:50] LABS: EGFR Non-African American 40.9 (>60)
[2018-04-18] MEDS: ceFAZolin 1 GM ADVAN(*) 1 GM in NS 0.9% 50 ML* 50 ML IVPB SCH ×2 (05:51→14:00)
[2018-04-18 05:55] LABS: INR 1.1 (0.77-1.02)
[2018-04-18] MEDS: Acetaminophen TAB* 325 MG PO PRN (07:26)
[2018-04-18] MEDS: Nystatin TOP POWDER* 15 GM BTL TOPICAL SCH ×2 (08:05→20:12)
[2018-04-18] MEDS: Magnesium Hydroxide LIQ* 30 ML UDC PO SCH ×2 (08:07→20:10)
[2018-04-18] MEDS: Docusate CAP* 100 MG PO SCH ×2 (08:07→20:10)
[2018-04-18] MEDS: Metoprolol Succinate XL TAB* 25 MG PO SCH (08:07)
[2018-04-18] MEDS: Vitamin THERAPEUTIC TAB PO SCH (08:07)
[2018-04-18] MEDS: Enoxaparin(*) 40 MG/0.4 ML SYR SUBCUT SCH (08:08)
--- NOTE | 2018-04-18 09:14 | PN ---
Progress Note - Progress Note Date of Service: 04/18/18 SOAP: Subjective: []Patient seen and examined at bedside. He feels well without complaints today. Hip pain is well controlled, he has walked the unit with PT. Denies CP, SOB, dizziness, nausea. Takes coumadin at home for a fib, he has no history of blood clot. Had bilateral knee done in the past, intends to DC to home rather than a rehab when ready. Objective: []General: well appearing, NAD LLE: Left hip dressing CDI. Thigh is soft, DF/PF intact, DP2+, sensation intact distally Calves supple and nontender without erythema, edema or palpable cords Assessment: []POD 1 sp Left total hip arthroplasty Dr Milton Plan: []WBAT PT/OT Lovenox bridge to coumadin, coumadin 8 mg today Hyponatremia: DC IV fluids, repeat test tomorrow Intend for DC home tomorrow Vital Signs Temp 98.8 F 04/18/18 07:42 Pulse 90 04/18/18 07:42 Resp 16 04/18/18 08:00 BP 124/69 04/18/18 07:42 Pulse Ox 97 04/18/18 08:00 Intake & Output 04/17/18 04/18/18 04/18/18 18:59 06:59 18:59 Intake Total 1999 850 1185 Output Total 1427 1600 Balance 573 -750 1185 Weight 225 lb Intake: IV Fluids 1999 50 945 ABX - CEFAZOLIN 50 LR 2000 945 Oral 800 240 Output: [place] 627 1600 Residual 800 [place] 16 Fr 800 Other: # Bowel Movements 0 Laboratory Last Values Hgb 13.2 g/dl (14.0-18.0) L 04/18/18 05:07 Hct 39 % (42-52) L 04/18/18 05:07 Plt Count 148 10^3/ul (150-450) L 04/18/18 05:07 MPV 9.0 fL (7.4-10.4) 04/18/18 05:07 INR (Anticoag Therapy) 1.10 (0.77-1.02) H 04/18/18 05:07 Sodium 132 mmol/L (135-145) L 04/18/18 05:07 Potassium 4.9 mmol/L (3.5-5.0) 04/18/18 05:07 Chloride 103 mmol/L (101-111) 04/18/18 05:07 Carbon Dioxide 23 mmol/L (22-32) 04/18/18 05:07 Anion Gap 6 mmol/L (2-11) 04/18/18 05:07 BUN 29 mg/dL (6-24) H 04/18/18 05:07 Creatinine 1.62 mg/dL (0.67-1.17) H 04/18/18 05:07 Est GFR ( Amer) 49.5 (>60) 04/18/18 05:07 Est GFR (Non-Af Amer) 40.9 (>60) 04/18/18 05:07 BUN/Creatinine Ratio 17.9 (8-20) 04/18/18 05:07 Glucose 140 mg/dL (70-100) H 04/18/18 05:07 Calcium 8.1 mg/dL (8.6-10.3) L 04/18/18 05:07
[2018-04-18] MEDS: oxyCODONE/Acetamin 5/325 MG* TAB PO PRN ×3 (11:52→20:10)
[2018-04-18] MEDS ORDERED: NS 0.9% 1000 ML* 1,000 ML IV ONE (16:06)
[2018-04-18] MEDS ORDERED: Furosemide IV* 10 MG/ML 2 ML VIAL (20 MG) IV ONE (16:07)
--- NOTE | 2018-04-18 16:14 | PN ---
Subjective Date of Service: 04/18/18 Interval History: Patient seen and examined. Per RN, urine output has been low all day since vargas removal. Bladder scan reveals only 150ml. Vargas has been out for 9 hours. Patient denies abdominal pain, no SOB, no fevers or chills. Surgical pain well controlled. No further complaints. Objective Active Medications: Acetaminophen (Tylenol Tab*) 650 mg PO Q8H PRN PRN Reason: PAIN OR TEMPERATURE Last Admin: 04/18/18 07:26 Dose: 650 mg Bisacodyl (Dulcolax Supp*) 10 mg MT DAILY PRN PRN Reason: constipation Cyclobenzaprine HCl (Flexeril Tab*) 5 mg PO TID PRN PRN Reason: SPASMS Diphenhydramine HCl (Benadryl Iv*) 25 mg IV Q6H PRN PRN Reason: itching Docusate Sodium (Colace Cap*) 100 mg PO BID [facility] Last Admin: 04/18/18 08:07 Dose: 100 mg Enoxaparin Sodium (Lovenox(*)) 40 mg SUBCUT Q24H [facility] Last Admin: 04/18/18 08:08 Dose: 40 mg Furosemide (Lasix Iv*) 20 mg IV ONCE ONE Stop: 04/18/18 16:08 Lactated Ringer's (Lactated Ringers 1000 Ml Bag*) 1,000 mls @ 75 mls/hr IV PER RATE [facility] Last Admin: 04/18/18 07:21 Dose: 75 mls/hr Sodium Chloride (Ns 0.9% 1000 Ml*) 1,000 mls @ 1,000 mls/hr IV ONCE ONE Stop: 04/18/18 17:05 Lactulose (Lactulose*) 30 ml PO Q6H PRN PRN Reason: constipation Magnesium Hydroxide (Milk Of Magnesia Liq*) 30 ml PO BID [facility] Last Admin: 04/18/18 08:07 Dose: 30 ml Magnesium Hydroxide (Milk Of Magnesia Liq*) 30 ml PO Q6H PRN PRN Reason: constipation Metoprolol Succinate (Toprol Xl Tab*) 25 mg PO QAM [facility] Last Admin: 04/18/18 08:07 Dose: 25 mg Morphine Sulfate (Morphine Vial*) 2 mg IV Q2H PRN PRN Reason: PAIN Last Admin: 04/18/18 13:58 Dose: 2 mg Multivitamins (Theragran Tab*) 1 tab PO DAILY [facility] Last Admin: 04/18/18 08:07 Dose: 1 tab Nystatin (Nystatin Top Powder*) 1 applic TOPICAL BID [facility] Last Admin: 04/18/18 08:05 Dose: 1 applic Ondansetron HCl (Zofran Inj*) 4 mg IV Q6H PRN PRN Reason: nausea Oxycodone HCl (Roxycodone Tab*) 10 mg PO Q4H PRN PRN Reason: PAIN OR TEMPERATURE Oxycodone/Acetaminophen (Percocet 5/325 Tab*) 1 tab PO Q4H PRN PRN Reason: PAIN Last Admin: 04/18/18 05:34 Dose: 1 tab Oxycodone/Acetaminophen (Percocet 5/325 Tab*) 2 tab PO Q4H PRN PRN Reason: PAIN Last Admin: 04/18/18 16:04 Dose: 2 tab Pharmacy Profile Note (Coumadin Daily Reminder*) 0 note FOLLOW UP 1700 [facility] Warfarin Sodium (Coumadin Tab(*)) 8 mg PO ONCE@1700 ONE; Protocol Stop: 04/18/18 17:01 Vital Signs - 8 hr 04/18/18 04/18/18 04/18/18 11:12 11:51 11:52 Temperature 97.6 F Pulse Rate 92 84 Respiratory 16 18 Rate Blood Pressure 117/49 (mmHg) O2 Sat by Pulse 91 Oximetry 04/18/18 04/18/18 04/18/18 13:54 13:58 15:00 Temperature Pulse Rate Respiratory 18 18 18 Rate Blood Pressure (mmHg) O2 Sat by Pulse Oximetry 04/18/18 04/18/18 15:59 16:04 Temperature 97.5 F Pulse Rate 98 Respiratory 16 18 Rate Blood Pressure 114/65 (mmHg) O2 Sat by Pulse 98 Oximetry Oxygen Devices in Use Now: None Appearance: alert, NAD Eyes: No Scleral Icterus, PERRLA Ears/Nose/Mouth/Throat: NL Teeth, Lips, Gums, Mucous Membranes Moist Neck: NL Appearance and Movements; NL JVP, Trachea Midline Respiratory: Symmetrical Chest Expansion and Respiratory Effort, Clear to Auscultation Cardiovascular: NL Sounds; No Murmurs; No JVD, No Edema, - - irregular Abdominal: NL Sounds; No Tenderness; No Distention, No Hepatosplenomegaly Extremities: No Edema, No Clubbing, Cyanosis Skin: No Rash or Ulcers Neurological: Alert and Oriented x 3, NL Sensation Nutrition: Taking PO's Result Diagrams: 04/18/18 05:07 04/18/18 05:07 Assess/Plan/Problems-Billing Assessment: This is an 82 year old male with history of right nephrectomy and chronic afib, that presented to Dr. Milton for elective hip arthroplasty, today with low urine output. - Patient Problems (1) Status post left hip replacement Code(s): Z96.642 - PRESENCE OF LEFT ARTIFICIAL HIP JOINT SNOMED Code(s): 972944533 Comment: - POC per ortho - OOB with PT/OT - Pain control with bowel regimen - Lovenox-warfarin bridge (2) Low urine output Code(s): R34 - ANURIA AND OLIGURIA SNOMED Code(s): 55423358 Comment: - Bladder scan with only 150ml after vargas removal - Bolus now with 1liter NS, patient appears dry and sodium is mildly low - Will give one small dose lasix to stimulate output - Renal function currently below baseline, continue to monitor creat and output - Continue IVF at maintenance after bolus (3) History of nephrectomy Code(s): Z90.5 - ACQUIRED ABSENCE OF KIDNEY SNOMED Code(s): 09928579482921 Comment: - 2/2 renal carcinoma in 2012 - Concerned for low output since vargas removal, however BUN/creatinine are good and below his usual basline - Will continue IVF (4) Atrial fibrillation Code(s): I48.91 - UNSPECIFIED ATRIAL FIBRILLATION SNOMED Code(s): 62058669 Comment: - Rate controlled on BB, stable - AC with warfarin (5) Hypertension Current Visit: Yes Status: Acute Code(s): I10 - ESSENTIAL (PRIMARY) HYPERTENSION SNOMED Code(s): 57169431 Status and Disposition: Inpatient, dispo per ortho
[2018-04-18] MEDS ORDERED: Warfarin TAB(*) 4 MG PO ONE (17:00)
[2018-04-18] MEDS: NS 0.9% 1000 ML* 1,000 ML IV SCH (17:15)
[2018-04-18] MEDS: Ondansetron INJ* 2 MG/ML VIAL IV PRN (20:16)
--- NOTE | 2018-04-19 01:10 | OP ---
DATE OF OPERATION: 04/17/18 - ROOM #339 DATE OF : 33 ATTENDING SURGEON: Marge Milton MD DENTAL HYGIENE INSTRUCTOR: KIERA Shine. Mr. Barron did help throughout the procedure with preparation of the leg, wound retraction, manipulation of the hip, and wound closure. ANESTHESIOLOGIST: Dr. Willingham. ANESTHESIA: Spinal. PRE-OP DIAGNOSIS: Severe end-stage degenerative osteoarthritis of the left hip joint. POST-OP DIAGNOSIS: Severe end-stage degenerative osteoarthritis of the left hip joint. OPERATIVE PROCEDURE: Left total hip arthroplasty. COMPLICATIONS: None. ESTIMATED BLOOD LOSS: 200 cc. SPECIMEN: Femoral head and acetabular reaming sent to pathology. HARDWARE: This is uncemented Atif total hip arthroplasty hardware. For the cup, a 6TF Tritanium cluster hole shell and 21-mm screw. For the liner, a Trident X3 0-degree polyethylene insert 4DF. For the stem, an Accolade II, size 7 with a 127-degree neck. For the head, an LFIT anatomic 40 -4 metal femoral head. BRIEF HISTORY/INDICATION: Mr. Gómez is an 82-year-old gentleman with years of increasingly severe left hip pain. Radiographs showed advanced osteoarthritis. He failed conservative treatment with anti-inflammatories, pain medication, and physical therapy. Due to continued pain and decreased quality of life, he elected to undergo a left total hip arthroplasty. Informed consent was obtained from the patient. He understood the risks of surgery included, but were not limited to bleeding, infection, damage to nearby structures, continued pain, need for further surgery, intraoperative fracture, nerve palsy, hardware failure or loosening, dislocation, leg length discrepancy, stroke, heart attack , blood clot, and . He wished to proceed. INTRAOPERATIVE FINDINGS: Intraoperatively, the patient was noted to have severe end-stage arthritis with complete loss of cartilage. DESCRIPTION OF PROCEDURE: Mr. Gómez was identified in the preanesthesia unit. His left lower extremity was marked as the correct operative side. Informed consent was signed and placed in the chart. The patient was taken to the operating room and placed under spinal anesthesia. A Salcedo catheter was placed. The patient was placed in the right lateral decubitus position on the peg board. All bony prominences were well padded. Left lower extremity was prepped and draped in the usual sterile fashion. Preop time-out was made to correctly identify the patient, side, and site. Appropriate perioperative antibiotics were given within 1 hour of incision. A 12 cm posterior hip incision was made and carried down to the lateral fascia layer. A new 10-blade was used to make an incision in the lateral fascial layer in line with the skin incision. Charnley retractor was placed. The piriformis and conjoined tendons were identified. These were elevated off the posterolateral femur and tagged with #5 Ethibond. Electrocautery was then used to make a standard posterolateral capsular flap and this was also tagged with #5 Ethibond. The hip was carefully dislocated. Lesser troch to center of the femoral head measured 62 mm. Oscillating saw was used to make the appropriate femoral neck cut. The femur was retracted anteriorly. After appropriate placement of retractors, the acetabulum was well visualized. Long handled knife sharply removed any remaining labrum from the acetabulum rim. The acetabulum was sequentially reamed up to a size 59. The 59 reamer had bleeding subchondral bone bed. A 59 trial had excellent fit. The final implant chosen was a Tritanium cluster hole shell 60F. This was impacted into the acetabulum without difficulty. The cup was stable with appropriate anteversion and abduction angle. A single 20 mm screw was placed in the superoposterior quadrant for extra stability. Trident X3 0-degree liner 40F was chosen. This was locked into the position in the acetabulum without difficulty. Stability of the liner was checked and rechecked and noted to be stable. Next, attention was turned to preparation of the femoral canal. A canal finder was used to enter the proximal femur. Femur canal was sequentially broached up to a size 7. A size 7 broach had good fit and appropriate anteversion. A 127 neck trial with a 40+ 0 head trial was chosen. Lesser troch to center of the femoral head measured 67 mm. Therefore, the -4 head was chosen. Lesser troch to center of the femoral head measured 63 mm. The hip was reduced and taken through a range of motion. The hip was stable in all positions. The hip was carefully dislocated and all trials were removed. Final implant chosen was an Accolade II, size 7, with a 127-degree neck angle. This was impacted into the femoral canal without difficulty. The stem was stable with appropriate anteversion and LFIT anatomic V40 femoral head 40 - 4 was chosen as a head. The head was impacted down to the femoral neck. Lesser troch to center of the femoral head final measurement was 62 mm. The hip was reduced and taken through a range of motion. The hip was stable in all positions. There was good soft tissue tension and appropriate leg lengths. The wound was copiously irrigated with sterile saline. Previously tagged tendons and capsule were reapproximated to the posterolateral femur through 2 trochanteric drill holes. The lateral fascia layer was closed using interrupted #1 Vicryl. The rest of the incision was closed in a layered fashion using 0 and 2-0 Vicryl. Skin was closed using running 3-0 Monocryl and Dermabond. Sterile Adaptic, 4x4's, Webril , and paper tape were used to cover the incision. The patient's anesthesia was reversed without difficulty and he was taken to the PACU in stable condition. Intended weightbearing will be weightbearing as tolerated. Intended DVT prophylaxis will be with Lovenox. [id number]/[facility] #: [id number] JAZMINE
[2018-04-19] MEDS: NS 0.9% 1000 ML* 1,000 ML IV SCH ×2 (06:05→22:10)
[2018-04-19] MEDS: oxyCODONE/Acetamin 5/325 MG* TAB PO PRN (06:10)
[2018-04-19] MEDS: Ondansetron INJ* 2 MG/ML VIAL IV PRN (07:30)
--- NOTE | 2018-04-19 07:34 | PN ---
Progress Note - Progress Note Date of Service: 04/19/19 SOAP: Subjective: Pt. is alert, feeling nauseous this AM. Objective: Vital Signs: Temp Pulse Resp BP Pulse Ox 98.0 F 104 16 126/63 88 04/19/18 03:19 04/19/18 03:19 04/19/18 06:10 04/19/18 03:19 04/19/18 03:19 LLE - dressing changed, inc c/d/i. distally nvi. Assessment: 82 yo pod 2 s/p LTHA Plan: wbat lle pt/ot karan now plan d/c to home with vns monitoring I/O
[2018-04-19 08:55] LABS: Hematocrit 32 % (42-52); Hemoglobin 10.8 g/dl (14.0-18.0); Platelet Count 179 10^3/ul (150-450)
[2018-04-19 09:08] LABS: INR 1.66 (0.77-1.02)
[2018-04-19] MEDS ORDERED: traMADol TAB* 50 MG PO PRN (09:33)
[2018-04-19] MEDS: Metoprolol Succinate XL TAB* 25 MG PO SCH (09:42)
[2018-04-19] MEDS: Vitamin THERAPEUTIC TAB PO SCH (09:42)
[2018-04-19] MEDS: Docusate CAP* 100 MG PO SCH ×2 (09:42→20:18)
[2018-04-19] MEDS: Magnesium Hydroxide LIQ* 30 ML UDC PO SCH ×2 (09:42→20:19)
[2018-04-19] MEDS: Nystatin TOP POWDER* 15 GM BTL TOPICAL SCH ×2 (09:42→20:19)
[2018-04-19] MEDS: Enoxaparin(*) 40 MG/0.4 ML SYR SUBCUT SCH (09:43)
[2018-04-19] MEDS ORDERED: NS 0.9% 1000 ML* 1,000 ML IV ONE (09:45)
[2018-04-19 10:58] LABS: EGFR Non-African American 34.7 (>60)
--- NOTE | 2018-04-19 15:33 | PN ---
Subjective Date of Service: 04/19/18 Interval History: Pt seen and examined today. Pt was out of bed and in hospital chair with legs elevated. Nursing staff stated that patient had complained of nausea after percocet dosage this morning. Per RN report, pt was noted to be hypotensive with the onset of nausea. Pt states that he does not eat often and eats small meals, and that he took medication on an empty stomach. Currently, pt denies nausea, vomiting, abdominal pain. Pt denies pain, numbness in lower extremities and does not complain of discomfort in the left hip. Objective Active Medications: Acetaminophen (Tylenol Tab*) 650 mg PO Q8H PRN PRN Reason: PAIN OR TEMPERATURE Last Admin: 04/18/18 07:26 Dose: 650 mg Bisacodyl (Dulcolax Supp*) 10 mg ID DAILY PRN PRN Reason: constipation Cyclobenzaprine HCl (Flexeril Tab*) 5 mg PO TID PRN PRN Reason: SPASMS Diphenhydramine HCl (Benadryl Iv*) 25 mg IV Q6H PRN PRN Reason: itching Docusate Sodium (Colace Cap*) 100 mg PO BID [facility] Last Admin: 04/19/18 09:42 Dose: 100 mg Enoxaparin Sodium (Lovenox(*)) 40 mg SUBCUT Q24H [facility] Last Admin: 04/19/18 09:43 Dose: 40 mg Sodium Chloride (Ns 0.9% 1000 Ml*) 1,000 mls @ 75 mls/hr IV PER RATE [facility] Last Admin: 04/19/18 06:05 Dose: 75 mls/hr Lactulose (Lactulose*) 30 ml PO Q6H PRN PRN Reason: constipation Magnesium Hydroxide (Milk Of Magnesia Liq*) 30 ml PO BID [facility] Last Admin: 04/19/18 09:42 Dose: 30 ml Magnesium Hydroxide (Milk Of Magnesia Liq*) 30 ml PO Q6H PRN PRN Reason: constipation Metoprolol Succinate (Toprol Xl Tab*) 25 mg PO QAM [facility] Last Admin: 04/19/18 09:42 Dose: Not Given Morphine Sulfate (Morphine Vial*) 2 mg IV Q2H PRN PRN Reason: PAIN Last Admin: 04/18/18 13:58 Dose: 2 mg Multivitamins (Theragran Tab*) 1 tab PO DAILY [facility] Last Admin: 04/19/18 09:42 Dose: 1 tab Nystatin (Nystatin Top Powder*) 1 applic TOPICAL BID [facility] Last Admin: 04/19/18 09:42 Dose: 1 applic Ondansetron HCl (Zofran Inj*) 4 mg IV Q6H PRN PRN Reason: nausea Last Admin: 04/19/18 07:30 Dose: 4 mg Pharmacy Profile Note (Coumadin Daily Reminder*) 0 note FOLLOW UP 1700 [facility] Last Admin: 04/18/18 17:16 Dose: 1 note Tramadol HCl (Ultram*) 50 mg PO Q6H PRN PRN Reason: PAIN Vital Signs - 8 hr 04/19/18 04/19/18 04/19/18 08:00 08:11 08:15 Temperature 98.1 F Pulse Rate 67 Respiratory 20 18 18 Rate Blood Pressure 98/58 (mmHg) O2 Sat by Pulse 94 Oximetry 04/19/18 04/19/18 04/19/18 09:15 09:18 09:23 Temperature Pulse Rate 79 Respiratory Rate Blood Pressure 80/59 80/59 98/58 (mmHg) O2 Sat by Pulse Oximetry 04/19/18 04/19/18 04/19/18 10:56 10:57 11:18 Temperature 97.7 F Pulse Rate 85 97 Respiratory 18 Rate Blood Pressure 99/54 99/54 104/57 (mmHg) O2 Sat by Pulse 95 Oximetry 04/19/18 11:49 Temperature Pulse Rate 92 Respiratory Rate Blood Pressure 120/62 (mmHg) O2 Sat by Pulse 97 Oximetry Oxygen Devices in Use Now: None Appearance: alert, in no acute distress Eyes: No Scleral Icterus, PERRLA Ears/Nose/Mouth/Throat: NL Teeth, Lips, Gums, Mucous Membranes Moist Neck: Trachea Midline Respiratory: Symmetrical Chest Expansion and Respiratory Effort, Clear to Auscultation Cardiovascular: - - irregular rate Abdominal: NL Sounds; No Tenderness; No Distention Extremities: No Edema Skin: - - surgical dressing clean, dry, intact Neurological: Alert and Oriented x 3 Nutrition: Taking PO's, - - pt reports low intake Result Diagrams: 04/19/18 08:46 04/19/18 08:45 Assess/Plan/Problems-Billing Assessment: This is an 82 year old male with history of right nephrectomy and chronic afib, that presented to Dr. Milton for elective hip arthroplasty. Urine output low yesterday, but imporved today. Pt had an episode of nausea with hypotension. - Patient Problems (1) Status post left hip replacement Code(s): Z96.642 - PRESENCE OF LEFT ARTIFICIAL HIP JOINT SNOMED Code(s): 114627722 Comment: - POC per ortho - OOB with PT/OT - Pain control with bowel regimen; given hypotension, percocet d/c'd; continue tylenol, tramadol, and bowel regimen - Lovenox-warfarin bridge (2) Hypotension Comment: Hypotension was likely due to volume loss, percocet, and poor PO intake. One liter fluid bolus administered. BP currently stable. (3) Urinary retention Code(s): R33.9 - RETENTION OF URINE, UNSPECIFIED SNOMED Code(s): 860444359 Comment: Per RN, bladder scan showed 500 ml PVR. Pt was straight- catheterized, with an output of 500 mL. Flomax initiated. (4) Low urine output Code(s): R34 - ANURIA AND OLIGURIA SNOMED Code(s): 10752547 Comment: -UOP increased, total output today is 1550 -Pt responded well to fluid administration (5) Atrial fibrillation Current Visit: Yes Status: Acute Code(s): I48.91 - UNSPECIFIED ATRIAL FIBRILLATION SNOMED Code(s): 84982397 Comment: - Rate controlled on BB, stable - AC with warfarin (6) Hypertension Current Visit: Yes Status: Acute Code(s): I10 - ESSENTIAL (PRIMARY) HYPERTENSION SNOMED Code(s): 92868861 Comment: Hypertension controlled with metoprolol. Hold parameters given hypotension today. (7) History of nephrectomy Current Visit: Yes Status: Acute Code(s): Z90.5 - ACQUIRED ABSENCE OF KIDNEY SNOMED Code(s): 52386896296218 Comment: - 2/2 renal carcinoma in 2013 - Renal function is poor, but pt remains at his baseline for BUN and Cr. - 1L fluid bolus given; will continue maintainence fluids and monitoring of kidney function Status and Disposition: Inpatient, dispo per ortho
[2018-04-19] MEDS: Tamsulosin CAP* 0.4 MG PO SCH (16:40)
[2018-04-19] MEDS ORDERED: Warfarin TAB(*) 4 MG PO ONE (17:00)
[2018-04-19] MEDS ORDERED: NS 0.9% 250 ML* 250 ML IV ONE (23:01)
--- NOTE | 2018-04-20 04:55 | PN ---
Hospitalist Progress Note Date of Service: 04/20/18 was called for decreased urine outpt got ns 250 cc bolus staff went to check his urine outpt ---> refused bladder scan and refused further workup including ns bolus labs or bladder scan will order ns 500 bolus at 7 am when he wakes up
--- NOTE | 2018-04-20 07:13 | PN ---
Progress Note - Progress Note Date of Service: 04/20/18 SOAP: Subjective: Pt. is unhappy with care this AM, nursing reports he has been noncompliant. He has had low urine output but refused NS bolus, bladder scan, or urine attempt. Objective: Vital Signs: Temp Pulse Resp BP Pulse Ox 98.2 F 96 16 122/73 99 04/20/18 03:39 04/20/18 03:39 04/20/18 03:39 04/20/18 03:39 04/20/18 03:39 Laboratory Results - last 24 hr 04/19/18 04/19/18 04/19/18 08:45 08:45 08:46 Hgb 10.8 L Hct 32 L Plt Count 179 MPV 9.0 INR (Anticoag Therapy) 1.66 H Sodium 133 L Potassium 5.1 H Chloride 101 Carbon Dioxide 25 Anion Gap 7 BUN 33 H Creatinine 1.87 H Est GFR ( Amer) 41.9 Est GFR (Non-Af Amer) 34.7 BUN/Creatinine Ratio 17.6 Glucose 175 H Calcium 7.7 L LLE - dressing c/d/i. distally nvi. Assessment: 82 yo M pod 3 s/p LTHA Plan: wbat lle post hip precautions pt/ot pt. is refusing most care at this point, although alert and oriented x 3. plan home today with vns
[2018-04-20] MEDS: Docusate CAP* 100 MG PO SCH ×2 (09:56→21:32)
[2018-04-20] MEDS: Vitamin THERAPEUTIC TAB PO SCH (09:56)
[2018-04-20] MEDS: Enoxaparin(*) 40 MG/0.4 ML SYR SUBCUT SCH (09:56)
[2018-04-20] MEDS: Metoprolol Succinate XL TAB* 25 MG PO SCH ×2 (09:56→09:58)
[2018-04-20] MEDS: Tamsulosin CAP* 0.4 MG PO SCH (09:56)
[2018-04-20] MEDS: Nystatin TOP POWDER* 15 GM BTL TOPICAL SCH ×2 (10:00→21:33)
[2018-04-20] MEDS: Magnesium Hydroxide LIQ* 30 ML UDC PO SCH ×2 (10:15→21:32)
--- NOTE | 2018-04-20 10:22 | PN ---
Progress Note - Progress Note Date of Service: 04/20/18 SOAP: The pt was seen this am due to refusal of repeat labs. The pt had a K and Cl of 5.1 and 133 respectively. We would have liked to obtain repeat values to verify the 2 lab values but the pt adamantly refused all blood work. It was explained to the pt what the negative effects of these types of lab values are. He verbalized understating of this. The pt was also offered Colace to be sent home with. He adamantly refused Colace at this time. He does not wish to take any more medications that he needs to. He was advised to increase fiber and fluid at this point and to call should he not have a bm in the next 2 days. Laboratory Last Values Hgb 10.8 g/dl (14.0-18.0) L 04/19/18 08:46 Hct 32 % (42-52) L 04/19/18 08:46 Plt Count 179 10^3/ul (150-450) 04/19/18 08:46 MPV 9.0 fL (7.4-10.4) 04/19/18 08:46 INR (Anticoag Therapy) 1.66 (0.77-1.02) H 04/19/18 08:45 Sodium 133 mmol/L (135-145) L 04/19/18 08:45 Potassium 5.1 mmol/L (3.5-5.0) H 04/19/18 08:45 Chloride 101 mmol/L (101-111) 04/19/18 08:45 Carbon Dioxide 25 mmol/L (22-32) 04/19/18 08:45 Anion Gap 7 mmol/L (2-11) 04/19/18 08:45 BUN 33 mg/dL (6-24) H 04/19/18 08:45 Creatinine 1.87 mg/dL (0.67-1.17) H 04/19/18 08:45 Est GFR ( Amer) 41.9 (>60) 04/19/18 08:45 Est GFR (Non-Af Amer) 34.7 (>60) 04/19/18 08:45 BUN/Creatinine Ratio 17.6 (8-20) 04/19/18 08:45 Glucose 175 mg/dL (70-100) H 04/19/18 08:45 Calcium 7.7 mg/dL (8.6-10.3) L 04/19/18 08:45
[2018-04-20] MEDS ORDERED: Warfarin TAB(*) 4 MG PO ONE (17:00)
--- NOTE | 2018-04-20 17:10 | PN ---
Subjective Date of Service: 04/20/18 Interval History: Patient seen and examined. Had a bout with dizziness again, felt unsteady on his feet this AM. Surgical pain well controlled, afebrile, no n/v. Adolfo SOB or chest pain. Objective Active Medications: Acetaminophen (Tylenol Tab*) 650 mg PO Q8H PRN PRN Reason: PAIN OR TEMPERATURE Last Admin: 04/18/18 07:26 Dose: 650 mg Bisacodyl (Dulcolax Supp*) 10 mg [place] DAILY PRN PRN Reason: constipation Cyclobenzaprine HCl (Flexeril Tab*) 5 mg PO TID PRN PRN Reason: SPASMS Diphenhydramine HCl (Benadryl Iv*) 25 mg IV Q6H PRN PRN Reason: itching Docusate Sodium (Colace Cap*) 100 mg PO BID [facility] Last Admin: 04/20/18 09:56 Dose: 100 mg Enoxaparin Sodium (Lovenox(*)) 40 mg SUBCUT Q24H [facility] Last Admin: 04/20/18 09:56 Dose: 40 mg Sodium Chloride (Ns 0.9% 1000 Ml*) 1,000 mls @ 75 mls/hr IV PER RATE [facility] Last Admin: 04/19/18 22:10 Dose: 75 mls/hr Lactulose (Lactulose*) 30 ml PO Q6H PRN PRN Reason: constipation Last Admin: 04/19/18 15:47 Dose: 30 ml Magnesium Hydroxide (Milk Of Magnesia Liq*) 30 ml PO BID [facility] Last Admin: 04/20/18 10:15 Dose: Not Given Magnesium Hydroxide (Milk Of Magnesia Liq*) 30 ml PO Q6H PRN PRN Reason: constipation Metoprolol Succinate (Toprol Xl Tab*) 25 mg PO QAM [facility] Last Admin: 04/20/18 09:58 Dose: Not Given Morphine Sulfate (Morphine Vial*) 2 mg IV Q2H PRN PRN Reason: PAIN Last Admin: 04/18/18 13:58 Dose: 2 mg Multivitamins (Theragran Tab*) 1 tab PO DAILY [facility] Last Admin: 04/20/18 09:56 Dose: 1 tab Nystatin (Nystatin Top Powder*) 1 applic TOPICAL BID [facility] Last Admin: 04/20/18 10:00 Dose: Not Given Ondansetron HCl (Zofran Inj*) 4 mg IV Q6H PRN PRN Reason: nausea Last Admin: 04/19/18 07:30 Dose: 4 mg Pharmacy Profile Note (Coumadin Daily Reminder*) 0 note FOLLOW UP 1700 [facility] Last Admin: 04/19/18 16:41 Dose: 1 note Tamsulosin HCl (Flomax Cap*) 0.4 mg PO DAILY [facility] Last Admin: 04/20/18 09:56 Dose: 0.4 mg Tramadol HCl (Ultram*) 50 mg PO Q6H PRN PRN Reason: PAIN Vital Signs - 8 hr 04/20/18 04/20/18 04/20/18 11:45 11:50 14:31 Temperature 97.2 F 98.3 F Pulse Rate 82 113 Respiratory 16 Rate Blood Pressure 77/45 112/51 (mmHg) O2 Sat by Pulse 65 96 97 Oximetry 04/20/18 15:25 Temperature 98.3 F Pulse Rate 99 Respiratory 18 Rate Blood Pressure 102/50 (mmHg) O2 Sat by Pulse 96 Oximetry Oxygen Devices in Use Now: None Appearance: alert, NAD Eyes: No Scleral Icterus, PERRLA Ears/Nose/Mouth/Throat: NL Teeth, Lips, Gums, Mucous Membranes Moist Neck: NL Appearance and Movements; NL JVP, Trachea Midline Respiratory: Symmetrical Chest Expansion and Respiratory Effort, Clear to Auscultation Cardiovascular: NL Sounds; No Murmurs; No JVD, RRR, No Edema Abdominal: NL Sounds; No Tenderness; No Distention Extremities: No Edema, No Clubbing, Cyanosis Skin: No Rash or Ulcers, - - dressing CDI Neurological: Alert and Oriented x 3, - - unsteady gait Nutrition: Taking PO's Result Diagrams: 04/19/18 08:46 04/19/18 08:45 Assess/Plan/Problems-Billing Assessment: This is an 82 year old male with history of right nephrectomy and chronic afib, that presented to Dr. Milton for elective hip arthroplasty. Post-operative course complicated by dehydration, hypotension and urinary retention. - Patient Problems (1) Status post left hip replacement Code(s): Z96.642 - PRESENCE OF LEFT ARTIFICIAL HIP JOINT SNOMED Code(s): 526160586 Comment: - POD3, POC per ortho - OOB with PT/OT - Pain control with bowel regimen; given hypotension, percocet d/c'd; continue tylenol, tramadol, and bowel regimen - Lovenox-warfarin bridge (2) Low urine output Code(s): R34 - ANURIA AND OLIGURIA SNOMED Code(s): 75005301 Comment: - With one episode of retention and was straight cath'd - Improved after IVF - Patient refused AM labs to recheck renal function today and refused bladder scan last night - Continue to monitor output and encourage patient to participate in POC (3) History of nephrectomy Code(s): Z90.5 - ACQUIRED ABSENCE OF KIDNEY SNOMED Code(s): 85222106379284 Comment: - 2/2 renal carcinoma in 2013 - Renal function is poor, but pt remains at his baseline for BUN and Cr. - Responded well to bolus, will continue maintainence fluids and encourage PO intake (4) Atrial fibrillation Code(s): I48.91 - UNSPECIFIED ATRIAL FIBRILLATION SNOMED Code(s): 21499719 Comment: - Rate controlled on BB, stable - AC with warfarin (5) Hypertension Code(s): I10 - ESSENTIAL (PRIMARY) HYPERTENSION SNOMED Code(s): 05683340 Comment: - Hypertension controlled with metoprolol. - Hold parameters given hypotension last 24 hours Status and Disposition: Inpatient, dispo per ortho. Referral out to [facility] for STR.
[2018-04-20] MEDS: Acetaminophen TAB* 325 MG PO PRN (21:30)
[2018-04-21] MEDS: Acetaminophen TAB* 325 MG PO PRN (04:30)
[2018-04-21 05:59] LABS: Hematocrit 24 % (42-52); Hemoglobin 8.3 g/dl (14.0-18.0); Mean Platelet Volume 8.7 fL (7.4-10.4); Platelet Count 140 10^3/ul (150-450)
[2018-04-21 06:16] LABS: INR 2.34 (0.77-1.02)
[2018-04-21 06:21] LABS: EGFR Non-African American 39.2 (>60)
[2018-04-21] MEDS: Magnesium Hydroxide LIQ* 30 ML UDC PO SCH (09:07)
[2018-04-21] MEDS: Docusate CAP* 100 MG PO SCH (09:07)
[2018-04-21] MEDS: Vitamin THERAPEUTIC TAB PO SCH (09:25)
[2018-04-21] MEDS: Metoprolol Succinate XL TAB* 25 MG PO SCH (09:25)
[2018-04-21] MEDS: Tamsulosin CAP* 0.4 MG PO SCH (09:25)
[2018-04-21] MEDS: Nystatin TOP POWDER* 15 GM BTL TOPICAL SCH (09:26)
[2018-04-21] MEDS: Enoxaparin(*) 40 MG/0.4 ML SYR SUBCUT SCH (10:08)
[2018-04-21 12:15] VITALS: BP 108/54
--- NOTE | 2018-04-21 12:50 | PN ---
Progress Note - Progress Note Date of Service: 04/21/18 SOAP: Subjective: POD #4 Left HUGH. Doing well, ok for d/c home today. Denies CP, SOB, f/c, n/v. Objective: Vitals: Temp Pulse Resp BP Pulse Ox 97.9 F 113 16 108/54 100 04/21/18 11:38 04/21/18 11:38 04/21/18 11:38 04/21/18 11:38 04/21/18 11:38 Gen: A&Ox3, NAD at rest Left hip: Dressing C/D/I, thigh soft, NT. +f/e at knee, ankle and MTPs. N/V intact Labs: Laboratory Results - last 24 hr 04/21/1818 04/21/18 05:24 05:31 05:45 Hgb 8.3 L Hct 24 L Plt Count 140 L MPV 8.7 INR (Anticoag Therapy) 2.34 H Sodium 133 L Potassium 4.3 Chloride 104 Carbon Dioxide 24 Anion Gap 5 BUN 34 H Creatinine 1.68 H Est GFR ( Amer) 47.5 Est GFR (Non-Af Amer) 39.2 BUN/Creatinine Ratio 20.2 H Glucose 101 H Calcium 7.6 L Assessment: POD #4 Left HUGH Plan: D/C home today Coumadin 4mg tonight and tomorrow Recheck INR Monday F/U with Dr. Milton 10-14 days
--- NOTE | 2018-04-22 11:20 | DS ---
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 SECONDARY DIAGNOSES: 1. Atrial fibrillation. 2. Hypertension. 3. History of kidney cancer. 4. Thoracic aortic aneurysm. HISTORY OF PRESENT ILLNESS: Mr. Gómez is an 82-year-old male with complaints of left hip pain that has been ongoing for several years. He failed conservative treatment and elected to proceed with a left total hip arthroplasty. HOSPITAL COURSE: On 04/17/18, the patient was admitted to [facility] and underwent a successful left total hip arthroplasty by Dr. Milton. He recovered briefly in the postanesthesia care unit and was transferred to the short-stay surgical unit in stable condition. He was consulted on by the hospitalist service for co-management of his chronic medical conditions. On postop day 1, the patient states that his pain was well controlled and was able to ambulate with physical therapy. He was restarted on his Coumadin for his atrial fibrillation and for DVT prophylaxis. He did have a slight hyponatremia and his IV fluids were discontinued. He was also given Lovenox to bridge until his Coumadin levels were therapeutic. He had an H and H of 13.2 and 39. His INR was 1.1 with 8 mg of Coumadin previously. On postop day 2, the patient did report some nausea, which was resolved with Zofran, continued to monitor his I and Os for his hyponatremia. He was able to participate with physical therapy again and was able to ambulate with a rolling walker. He had a slight drop in his H and H with acute blood loss anemia, he was 10.8 and 32. INR increased to 1.6 with 8 mg of Coumadin previously. Sodium levels improved to 133. On postop day 3, the patient had some low urine output, but then refused a normal saline bolus. He also refused a bladder scan or straight catheterization attempt. His H and H was 8.3 and 24, although he was asymptomatic. He did not have any H and H on postop day 3 as he refused all lab draws. He still is able to participate with physical therapy and the decision was made for the patient to attend inpatient rehab on discharge. On postop day 4, the patient was seen by Dr. Milton, who had a discussion with the patient regarding his disposition and he felt that he was comfortable going home at this point. He was agreeable to having lab work drawn. He again had a drop in his H and H to 8.3 and 24, although the patient did not have any symptoms at that time. His INR increased to 2.3 and his Lovenox was then held. His sodium remained stable at 133. He was voiding better on postop day 4 as well. Throughout the hospital course, the patient's vital signs remained stable. He did have a slight tachycardia likely due to his blood loss anemia, although he did not report any dizziness, shortness of breath or lightheadedness. He also had no chest pain as well. His tachycardia is likely due to his atrial fibrillation. DISCHARGE DISPOSITION: Home. DISCHARGE CONDITION: Stable. DISCHARGE MEDICATIONS: The patient will use: 1. Tramadol 50 mg 1 tab p.o. q.4-6 hours p.r.n. pain. 2. Colace 100 mg p.o. b.i.d. p.r.n. constipation. He will resume his home medications of: 1. Coumadin alternating 7.5 mg and 5 mg daily. 2. Metoprolol succinate 25 mg daily. 3. Tamsulosin 0.4 mg daily. DISCHARGE INSTRUCTIONS: The patient is weightbearing as tolerated with the use of a rolling walker. He will have home physical therapy and visiting nurse services for INR draws. He will wash the wound with soap and water, apply dry dressing as needed. He is understanding not to submerge the incision in a bathtub, hot tub or swimming pool. He will follow up in the office 10 to [address] Milton for an incision check. All of his questions were answered to his full satisfaction. He is understanding to go to the emergency room with any chest pain, shortness of breath, fever greater than 101.5, calf pain or swelling. KIERA DACOSTA [id number]/[facility] #: [id number] JAZMINE
== END 2018-04-21 14:17 | disposition home health service (06) | DRG 470 ==
LOC: AA 10:11 → SSU 16:34
PROVIDERS: ADMIT Orthopaedic Surgery Adult Reconstructive Orthopaedic Surgery; ATTEND Orthopaedic Surgery Adult Reconstructive Orthopaedic Surgery
PROC: 0SRB02A Replacement of Left Hip Joint with Metal on Polyethylene Synthetic Substitute, Uncemented, Open Approach (ICD-10-PCS; principal; 2018-04-17 13:00)
DX: M16.12 Unilateral primary osteoarthritis, left hip (principal); E87.1 Hypo-osmolality and hyponatremia; D62 Acute posthemorrhagic anemia; I95.9 Hypotension, unspecified; R11.0 Nausea; R33.9 Retention of urine, unspecified; Z53.29 Procedure and treatment not carried out because of patient's decision for other reasons; R00.0 Tachycardia, unspecified; E86.0 Dehydration; I10 Essential (primary) hypertension; I71.2 Thoracic aortic aneurysm, without rupture; H91.93 Unspecified hearing loss, bilateral; I48.2 Chronic atrial fibrillation; I35.1 Nonrheumatic aortic (valve) insufficiency; Z80.41 Family history of malignant neoplasm of ovary; Z82.49 Family history of ischemic heart disease and other diseases of the circulatory system; Z85.528 Personal history of other malignant neoplasm of kidney; Z90.5 Acquired absence of kidney; Z97.4 Presence of external hearing-aid; Z91.14 Patient's other noncompliance with medication regimen; Z79.01 Long term (current) use of anticoagulants; Z96.653 Presence of artificial knee joint, bilateral
CPT/HCPCS: 36415; 80048; 85014; 85018; 85049; 85610; 88305; 88311; A9270-GY; C1713; C1776; G8978-GP-CJ; G8979-GP-CI; G8987-GO-CI; G8987-GO-CJ; G8988-GO-CI; G8989-GO-CI; J0690; J1100; J1170; J1650; J1940; J2250; J2270; J2405; J2704; J2795; J3010